=== PATIENT | female | born 1960 | race Caucasian/White ===

== ENCOUNTER 2022-06-03 07:40 | Outpatient (REF) | payer MEDICAID, SELFPAY ==
[2022-06-03 10:41] LABS: MANUAL DIFF FLAG NO
[2022-06-03 10:42] LABS: Basophils Absolute Auto 0.1 X10*3/uL (0.0-0.2); Basophils Percent Auto 0.9 % (0-2); Eosinophils Absolute Auto 0.2 X10*3/uL (0.0-0.4); Hematocrit 44.9 % (37.0-47.0); Hemoglobin 14.9 g/dl (12.0-16.0); Imm Gran Abs Auto 0.02 X10*3/uL (0.00-0.03); Imm Gran Pct Auto 0.3 % (0.0-0.4); Lymphocytes Percent Auto 30.9 % (20-40); Mean Corpuscular HGB Conc 33.2 g/dl (31.0-35.0); Mean Corpuscular Hemoglobin 33.1 pg (27.0-33.0); Mean Corpuscular Volume 99.8 fL (80.0-98.0); Mean Platelet Volume 10.6 fL (9.4-12.3); Monocytes Absolute Auto 0.5 X10*3/uL (0.1-1.2); Monocytes Percent Auto 8.1 % (2-11); Neutrophils Absolute Auto 3.6 x10*3/uL (2.0-8.3); Neutrophils Percent Auto 56.8 % (45-73); Platelet Count 276 X10*3/uL (160-400); Red Cell Distribution Width 11.8 % (11.0-16.0); White Blood Count 6.4 X10*3/uL (4.8-10.8)
[2022-06-03 11:01] LABS: Alanine Aminotransferase 38 U/L (0-31); Albumin Level 4.3 g/dL (3.5-5.0); Alkaline Phosphatase 91 U/L (39-117); Anion Gap 16 (12-20); Aspartate Amino Transferase 24 U/L (5-31); Bilirubin Total 0.6 mg/dL (0.0-1.0); Blood Urea Nitrogen 10 mg/dL (9-16); Calcium 9.5 mg/dL (8.4-10.2); Carbon Dioxide 25 mmol/L (22-29); Chloride 102 mmol/L (96-108); Cholesterol 177 mg/dL; Estimated Glomerular Filt Rate > 60; Glucose Fasting 99 mg/dL (60-99); HDL Cholesterol 61 mg/dL; LDL Cholesterol Calculated 102 mg/dl; Potassium 4.2 mmol/L (3.3-5.1); Sodium 139 mmol/L (135-145); Total Protein 6.9 g/dL (6.5-8.0); Triglycerides 72 mg/dL
[2022-06-03 11:25] LABS: Vitamin D 25-OH Total 40.7 ng/mL (>30)
== END 2022-06-03 07:41 | disposition home or self-care (01) ==
LOC: HO.10HDL 07:40
PROVIDERS: Visit Provider Internal Medicine
DX: Z00.00 Encounter for general adult medical examination without abnormal findings (principal)
CPT/HCPCS: 36415; 80053; 80061; 82306; 85025

== ENCOUNTER 2022-10-01 09:35 | Outpatient (REF) | payer MEDICAID, SELFPAY ==
[2022-10-01 10:35] LABS: MANUAL DIFF FLAG NO
[2022-10-01 10:45] LABS: Basophils Absolute Auto 0.1 X10*3/uL (0.0-0.2); Basophils Percent Auto 0.8 % (0-2); Eosinophils Absolute Auto 0.1 X10*3/uL (0.0-0.4); Eosinophils Percent Auto 0.6 % (0-4); Hematocrit 43.3 % (37.0-47.0); Hemoglobin 14.6 g/dl (12.0-16.0); Imm Gran Abs Auto 0.05 X10*3/uL (0.00-0.03); Imm Gran Pct Auto 0.4 % (0.0-0.4); Lymphocytes Absolute Auto 2.8 X10*3/uL (1.2-4.9); Mean Corpuscular HGB Conc 33.7 g/dl (31.0-35.0); Mean Corpuscular Hemoglobin 33.5 pg (27.0-33.0); Mean Corpuscular Volume 99.3 fL (80.0-98.0); Mean Platelet Volume 9.9 fL (9.4-12.3); Monocytes Absolute Auto 1.1 X10*3/uL (0.1-1.2); Monocytes Percent Auto 9.4 % (2-11); Neutrophils Absolute Auto 7.4 x10*3/uL (2.0-8.3); Neutrophils Percent Auto 64.8 % (45-73); Platelet Count 302 X10*3/uL (160-400); Red Blood Count 4.36 X10*6/uL (4.20-5.50); Red Cell Distribution Width 11.4 % (11.0-16.0); White Blood Count 11.4 X10*3/uL (4.8-10.8)
[2022-10-01 11:25] LABS: Erythrocyte Sedimentation Rate 3 MM/HR (0-20)
[2022-10-01 11:55] LABS: Alanine Aminotransferase 47 U/L (0-31); Albumin Level 4.1 g/dL (3.5-5.0); Alkaline Phosphatase 89 U/L (39-117); Anion Gap 13 (12-20); Aspartate Amino Transferase 24 U/L (5-31); Bilirubin Total 0.7 mg/dL (0.0-1.0); Blood Urea Nitrogen 16 mg/dL (9-16); C Reactive Protein 0.16 mg/dL (< or = 0.50); Calcium 9.7 mg/dL (8.4-10.2); Carbon Dioxide 28 mmol/L (22-29); Chloride 103 mmol/L (96-108); Estimated Glomerular Filt Rate > 60; Glucose Random 93 mg/dL (60-115); Potassium 3.8 mmol/L (3.3-5.1); Sodium 140 mmol/L (135-145); Total Protein 6.6 g/dL (6.5-8.0)
== END 2022-10-01 09:36 | disposition home or self-care (01) ==
LOC: HO.10HDL 09:35
PROVIDERS: Visit Provider Internal Medicine
DX: R21 Rash and other nonspecific skin eruption (principal)
CPT/HCPCS: 36415; 80053; 85025; 85652; 86140

== ENCOUNTER 2023-06-24 13:45 | Outpatient (REF) | payer MEDICAID, SELFPAY ==
[2023-06-24 13:57] LABS: MANUAL DIFF FLAG NO
[2023-06-24 14:29] LABS: Basophils Absolute Auto 0.1 X10*3/uL (0.0-0.2); Basophils Percent Auto 0.8 % (0-2); Eosinophils Absolute Auto 0.2 X10*3/uL (0.0-0.4); Eosinophils Percent Auto 2.7 % (0-4); Hematocrit 46.3 % (37.0-47.0); Hemoglobin 15.6 g/dl (12.0-16.0); Imm Gran Abs Auto 0.02 X10*3/uL (0.00-0.03); Imm Gran Pct Auto 0.2 % (0.0-0.4); Lymphocytes Absolute Auto 2.6 X10*3/uL (1.2-4.9); Lymphocytes Percent Auto 30.8 % (20-40); Mean Corpuscular HGB Conc 33.7 g/dl (31.0-35.0); Mean Corpuscular Hemoglobin 34.2 pg (27.0-33.0); Mean Corpuscular Volume 101.5 fL (80.0-98.0); Mean Platelet Volume 9.7 fL (9.4-12.3); Monocytes Percent Auto 11.2 % (2-11); Neutrophils Absolute Auto 4.6 x10*3/uL (2.0-8.3); Neutrophils Percent Auto 54.3 % (45-73); Platelet Count 266 X10*3/uL (160-400); Red Blood Count 4.56 X10*6/uL (4.20-5.50); Red Cell Distribution Width 11.8 % (11.0-16.0); White Blood Count 8.5 X10*3/uL (4.8-10.8)
[2023-06-24 15:05] LABS: Alanine Aminotransferase 50 U/L (0-31); Albumin Level 4.4 g/dL (3.5-5.0); Alkaline Phosphatase 99 U/L (39-117); Anion Gap 14 (12-20); Aspartate Amino Transferase 37 U/L (5-31); Bilirubin Total 0.6 mg/dL (0.0-1.0); Blood Urea Nitrogen 7 mg/dL (9-16); C Reactive Protein 0.93 mg/dL (< or = 0.50); Calcium 10.4 mg/dL (8.4-10.2); Carbon Dioxide 27 mmol/L (22-29); Chloride 103 mmol/L (96-108); Estimated Glomerular Filt Rate > 60; Glucose Random 85 mg/dL (60-115); Potassium 4.7 mmol/L (3.3-5.1); Sodium 139 mmol/L (135-145); Total Protein 7.7 g/dL (6.5-8.0)
[2023-06-25 08:30] LABS: Syphilis Screen Nonreactive (Nonreactive)
[2023-06-27 09:23] LABS: Lyme Abs Screen <0.90 index
== END 2023-06-24 13:46 | disposition home or self-care (01) ==
LOC: HO.LAB 13:45
PROVIDERS: PCP Internal Medicine; Visit Provider Internal Medicine
DX: R21 Rash and other nonspecific skin eruption (principal); I10 Essential (primary) hypertension
CPT/HCPCS: 36415; 80053; 82550; 85025; 86140; 86617; 86618; 86780

== ENCOUNTER 2025-01-14 09:53 | Outpatient (AMB) | payer MEDICAID, SELFPAY ==
--- NOTE | 2025-01-14 09:56 | A.OFFPC_ITS ---
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 She has been taking klonopin every morning for management of palpitations/anxiety and will occasionally take an additional 0.5mg if needed for breakthrough symptoms. She is not currently on SSRI/SNRI. Did try fluoxetine in the past but had adverse side effects including fogginess and overall not feeling like herself. She also tells me she has some discomfort/cramping in the hands bilaterally but is able to do exercises and stretching with improvement in symptoms. Also suspects OA of the L hip. Reports pain primarily when sitting for periods that improves when walking. Overall finds symptoms tolerable with activity and stretching. Able to complete ADLs. She also assists in taking care of her brother who last year had a femur fracture and hip replacement. She is not formally exercising but is keeping active. Follows a healthy diet with good protein, vegetable and fruit intake though does have to soften fruits/vegetable due to difficulties with her dentures for which she is following with a dentist. She did initially have elevated blood pressure which improved to 132/82 at the conclusion of the visit- suspect r/t anxiety. Overall doing well. [facility] Medical History (Updated 01/14/25 @ 10:14 by [facility]) Obesity Anxiety Review of Systems Const All systems reviewed & are unremarkable except as noted in HPI and below Physical exam (Primary Care) Vital Signs: Last Vital Signs Temp 98.9 F 01/14/25 10:00 Pulse 102 H 01/14/25 10:00 Resp 16 01/14/25 10:00 BP 132/82 01/14/25 10:32 Pulse Ox 98 01/14/25 10:00 Oxygen Delivery Method Room Air 01/14/25 10:00 BMI result Body Mass Index 37.8 Const Other: Constitutional - Awake and Alert, No apparent distress Eyes - PERRLA, EOMI Cardiovascular - S1S2, RRR, No edema Respiratory - Normal lung expansion, Normal respiratory effort, No respiratory distress, CTA bilaterally Extremities - no calf tenderness bilaterally, no swelling Skin - Warm/Dry Neurological - Alert & oriented x3 Psychological - Appropriate affect Coding Level of Care Code New Pt Level 4 (73634) Complex EM visit Add On G2211 Diagnoses Anxiety F41.9 Obesity E66.9 Assessment & Plan Assessment & Plan (1) Anxiety: Code(s): F41.9 - Anxiety disorder, unspecified Category: Medical Plan: Overall stable. Discussed once daily use of benzodiazepines are unlikely to provide good maintenance given duration of therapy but are effective as needed. Discussed trialing an SSRI for better maintenance of symptoms to hopefully decrease the need for klonopin which we discussed is highly addictive and difficult to wean from. She is agreeable to trialling sertraline 50mg daily for management of generalized anxiety. Recommend taking 25 mg nightly for the 1st week and then increasing to 50 mg nightly. Discussed side effects of medications. She is advised she can still take klonipin as needed. Masspat reviewed and rx sent. Follow up in 1 month. (2) Obesity: Code(s): E66.9 - Obesity, unspecified Category: Medical Plan: Continue with healthy diet and increase cardio and resistance exercise. This will likely improve her anxiety as well while improving weight loss. Discussed that resistance/weight-bearing exercise will also help for osteoporosis prevention. Plan Follow-up in 1 month. Labs ordered to be completed after the visit today. Orders: Orders Complete Blood Count Auto Diff Today E66.9 - Obesity, unspecified, F41.9 - Anxiety disorder, unspecified, Z13.1 - Encounter for screening for diabetes mellitus, Z13.220 - Encounter for screening for lipoid disorders Lipid Panel Today E66.9 - Obesity, unspecified, F41.9 - Anxiety disorder, unspecified, Z13.1 - Encounter for screening for diabetes mellitus, Z13.220 - Encounter for screening for lipoid disorders TSH reflex Free T4 Today E66.9 - Obesity, unspecified, F41.9 - Anxiety disorder, unspecified, Z13.1 - Encounter for screening for diabetes mellitus, Z13.220 - Encounter for screening for lipoid disorders Liver Panel Today E66.9 - Obesity, unspecified, F41.9 - Anxiety disorder, unspecified, Z13.1 - Encounter for screening for diabetes mellitus, Z13.220 - Encounter for screening for lipoid disorders Basic Metabolic Panel Today E66.9 - Obesity, unspecified, F41.9 - Anxiety disorder, unspecified, Z13.1 - Encounter for screening for diabetes mellitus, Z13.220 - Encounter for screening for lipoid disorders Hemoglobin A1c Today E66.9 - Obesity, unspecified, F41.9 - Anxiety disorder, unspecified, Z13.1 - Encounter for screening for diabetes mellitus, Z13.220 - Encounter for screening for lipoid disorders Medications: New sertraline Take 1 half tab nightly x 7 days, then take 1 tab nightly 50 mg PO DAILY 30 tabs 0RF Changed From clonazepam take 1 tab and half by mouth as needed orally bedtime; administer 30 minutes before bedtime To clonazepam take 1 - 1.5 tabs as needed for anxiety; administer 30 minutes before bedtime 45 tabs 0RF
[2025-01-14 10:00] VITALS: BP 156/86; PULSE 102; RESP 16; TEMP 37.2; O2SAT 98; BMI 37.8
[2025-01-14 10:32] VITALS: BP 132/82
== END 2025-01-14 10:33 | disposition home or self-care (01) ==
LOC: HO.HMCHD 09:54
PROVIDERS: PCP Internal Medicine; Visit Provider Physician Assistant
DX: F41.9 Anxiety disorder, unspecified (principal); E66.9 Obesity, unspecified

== ENCOUNTER → 2025-01-14 09:53 | Outpatient (BNVA) | payer OTHER, SELFPAY | PROVIDERS: PCP Internal Medicine; Visit Provider Physician Assistant | DX: F41.9 Anxiety disorder, unspecified (principal); E66.9 Obesity, unspecified; Z68.37 Body mass index [BMI] 37.0-37.9, adult | CPT/HCPCS: 99212 ==

== ENCOUNTER 2025-01-14 10:39 | Outpatient (REF) | payer OTHER, SELFPAY ==
[2025-01-14 13:50] LABS: MANUAL DIFF FLAG NO
[2025-01-14 14:00] LABS: Basophils Absolute Auto 0.1 X10*3/uL (0.0-0.2); Eosinophils Absolute Auto 0.2 X10*3/uL (0.0-0.4); Eosinophils Percent Auto 2.2 % (0-4); Hematocrit 44.8 % (37.0-47.0); Hemoglobin 15.2 g/dl (12.0-16.0); Imm Gran Abs Auto 0.04 X10*3/uL (0.00-0.03); Imm Gran Pct Auto 0.5 % (0.0-0.4); Lymphocytes Absolute Auto 2.4 X10*3/uL (1.2-4.9); Lymphocytes Percent Auto 30.3 % (20-40); Mean Corpuscular HGB Conc 33.9 g/dl (31.0-35.0); Mean Corpuscular Hemoglobin 34.7 pg (27.0-33.0); Mean Corpuscular Volume 102.3 fL (80.0-98.0); Mean Platelet Volume 9.9 fL (9.4-12.3); Monocytes Absolute Auto 0.8 X10*3/uL (0.1-1.2); Monocytes Percent Auto 9.6 % (2-11); Neutrophils Absolute Auto 4.4 x10*3/uL (2.0-8.3); Neutrophils Percent Auto 56.4 % (45-73); Platelet Count 255 X10*3/uL (160-400); Red Blood Count 4.38 X10*6/uL (4.20-5.50); Red Cell Distribution Width 11.5 % (11.0-16.0); White Blood Count 7.8 X10*3/uL (4.8-10.8)
[2025-01-14 14:04] LABS: Estimated Average Glucose 100 mg/dL; Hemoglobin A1C 126.5517 umol/L; Hemoglobin A1c % 5.1 % (<6.0); Total Hemoglobin (HGBA1C) 3936.4902 umol/L
[2025-01-14 14:27] LABS: Alanine Aminotransferase 61 U/L (0-31); Albumin Level 4.1 g/dL (3.5-5.0); Alkaline Phosphatase 100 U/L (39-117); Anion Gap 11 (12-20); Aspartate Amino Transferase 45 U/L (5-31); Bilirubin Direct 0.2 mg/dL (0.0-0.5); Bilirubin Total 0.5 mg/dL (0.0-1.0); Blood Urea Nitrogen 8 mg/dL (9-16); Calcium 9.7 mg/dL (8.4-10.2); Carbon Dioxide 27 mmol/L (22-29); Chloride 103 mmol/L (96-108); Cholesterol 183 mg/dL (<200); Estimated Glomerular Filt Rate > 60; Glucose Random 105 mg/dL (60-115); HDL Cholesterol 78 mg/dL (>40); LDL Cholesterol Calculated 93 mg/dL (<100); Potassium 4.2 mmol/L (3.3-5.1); Sodium 137 mmol/L (135-145); TSH reflex Free T4 1.57 uIU/mL (0.32-4.0); Total Protein 7.5 g/dL (6.5-8.0); Triglycerides 63 mg/dL (<150)
== END 2025-01-14 10:40 | disposition home or self-care (01) ==
LOC: HO.10HDL 10:39
PROVIDERS: Visit Provider Physician Assistant
DX: F41.9 Anxiety disorder, unspecified (principal); E66.9 Obesity, unspecified; Z13.1 Encounter for screening for diabetes mellitus; Z13.220 Encounter for screening for lipoid disorders
CPT/HCPCS: 36415; 80048; 80061; 80076; 83036; 84443; 85025

== ENCOUNTER 2025-03-08 08:09 | Outpatient (REF) | payer OTHER, SELFPAY ==
--- NOTE | ~2025-03-08 | US_ITS ---
CLINICAL HISTORY: R74.8 - Abnormal levels of other serum enzymes US abdomen limited Comparison: None Findings: Limited exam due to body habitus and bowel gas shadowing. The visualized pancreas is normal, pancreatic tail is obscured by bowel gas. The liver is enlarged, right lobe length is 18.2 cm. Markedly increased echogenicity, liver is not completely visualized, majority of the right hepatic lobe, posterior superior left hepatic lobe are not seen, no focal lesion is seen in the visualized liver. No bile duct dilatation. Common duct 4 mm diameter. Physiologic distention of the gallbladder, on cine images, there is small dependent intraluminal heterogeneous echogenicity, no gallbladder wall thickening, negative sonographic Perry's sign. Main portal vein shows antegrade flow. Right kidney normal, 11.1 cm in length. No free fluid in the right upper quadrant of the abdomen. Impression: 1. Probable small gallstones or sludge, not well seen, no acute cholecystitis. 2. Hepatomegaly with steatosis, liver is not clearly or entirely seen. This document has been electronically signed by: Siobhan Kohli MD on 03/08/2025 12:25:26
== END 2025-03-08 08:10 | disposition home or self-care (01) ==
LOC: HO.US 08:09
PROVIDERS: PCP Internal Medicine; Visit Provider Physician Assistant
DX: R74.8 Abnormal levels of other serum enzymes (principal)
CPT/HCPCS: 76705

== ENCOUNTER → 2025-03-08 08:11 | Outpatient (BNV) | payer OTHER, SELFPAY | PROVIDERS: PCP Internal Medicine; Visit Provider Radiology Diagnostic Radiology | DX: K76.0 Fatty (change of) liver, not elsewhere classified (principal); R16.0 Hepatomegaly, not elsewhere classified | CPT/HCPCS: 76705 ==

== ENCOUNTER 2025-05-18 08:53 | Outpatient (AMB) | payer OTHER, SELFPAY ==
--- NOTE | 2025-05-18 08:56 | MHC.PC.OV ---
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 Accompanied by: Self / Same As Patient Allergies codeine Allergy (Intermediate, Verified 05/18/25 08:56) Vomiting Tobacco use date assessed: 05/18/25 Fall risk assessment: No Falls in past year Last assessed Fall Risk: 05/18/25 Dental Screening Dental Screen Date: 05/18/25 Did you have a dental visit in the last 12 months?: No Did you have a dental problem in the last 6 months where you did not have access to dental care?: No Was dental information given to patient?: No HPI HPI Comments History of Present Illness Details 64 year old female with history of anxiety and obesity presents to the issue for follow up. Anxiety- didn't start zoloft, concerned about side effects including liver failure. Reports tried in the past made her groggy. Taking care of her elderly brother seeing early signs of alzheimers and difficulty with mobility. Prior to meds had significant GI issues, over 30 years ago. On clonazepam with good effect . Does endorse some depressive symptoms/sadness, seems situation r/t brother. Does still experience Obesity- bmi 36.9. Has lost about 5 pounds since last visit. NAFLD- mildly elevated LFTs. Eating healthier and exercising Concerns: nonpainful lumps on arms ROS: see hpi EXAM: Constitutional - Awake and Alert, No apparent distress Eyes - PERRL Cardiovascular - S1S2, RRR, No edema Respiratory - Normal lung expansion, Normal respiratory effort, No respiratory distress, CTA bilaterally Extremities - no calf tenderness bilaterally, no swelling. Soft fatty masses about 1.5in on bilateral arms, nontender Skin - Warm/Dry Neurological - Alert & oriented x3 Psychological - Appropriate affect, tearful at times [facility] Medical History (Updated 05/18/25 @ 09:29 by [facility]) NAFLD (nonalcoholic fatty liver disease) Spongiotic dermatitis MRSA (methicillin resistant staph aureus) culture positive Elevated liver enzymes Obesity Anxiety Family History Brother Seizure Brother Seizure Social History Housing: House Patient Tobacco Use Status: Current everyday Tobacco user Cigarettes Per Day: 8 e-Cigarette/Vaping Use: Never Used service: No Current occupational status: retired Cognitive needs: No Hearing needs: No Vision needs: Yes (Reading glasses) Questionnaire PHQ-9 Over the last 2 weeks, how often have you been bothered by any of the following problems? 1. Little interest or pleasure in doing things: not at all 2. Feeling down, depressed, or hopeless: several days 3. Trouble falling or staying asleep, or sleeping too much: several days 4. Feeling tired or having little energy: several days 5. Poor appetite or overeating: not at all 6. Feeling bad about yourself - or that you are a failure or have let yourself or your family down: not at all 7. Trouble concentrating on things, such as reading the newspaper or watching television: not at all 8. Moving or speaking so slowly that other people could have noticed. Or the opposite - being so fidgety or restless that you have been moving around a lot more than usual: not at all 9. Thoughts that you would be better off or of hurting yourself in some way: not at all Total score: 3 Source: Developed by Drs. José Miguel Tyson, Nadiya Interiano, Esa Webber and colleagues, with an educational deepa from [employer]. Thrive Questionnaire Date Thrive assessed: 05/18/25 I am a: Patient What is your living situation today?: I have a steady place to live Within the past 12 months, did the food you bought not last and you didn't have the money to get more?: Never true Within the past 12 months, did you worry whether your food would run out before you got money to buy more?: Never true Do you have trouble paying for medicines?: No Do you have trouble getting transportation to medical appointments?: No Do you have trouble paying your heating and electricity bill?: No Do you have trouble taking care of your child, family member or friend?: No Do you have trouble with day-to-day activities such as bathing, preparing meals, shopping, managing finances, etc.?: No Are you currently unemployed and looking for a job?: No Are you interested in more education?: No Please select the resources that you would like help with: None THRIVE Score: 0 KAVITA-7 AMB Questionnaire KAVITA-7 Date KAVITA - 7 assessed: 05/18/25 Feeling nervous, anxious, or on edge: 1 = Several days Not being able to stop or control worryin = Several days Worrying too much about different things: 1 = Several days Trouble relaxin = Not at all Being so restless that it is hard to sit still: 0 = Not at all Becoming easily annoyed or irritable: 0 = Not at all Feeling afraid as if something awful might happen: 0 = Not at all Total KAVITA-7 score (0-4 normal; 5-9 mild; 10-14 moderate; 15-21 severe): 3 Source: Developed by Drs. José Miguel Tyson, Nadiya Interiano, Esa Webber and colleagues, with an educational deepa from [employer]. Physical exam (Primary Care) Vital Signs: Last Vital Signs Temp 97.3 F 05/18/25 09:06 Pulse 97 05/18/25 09:06 BP 140/82 H 05/18/25 09:06 Pulse Ox 99 05/18/25 09:06 Oxygen Delivery Method Room Air 05/18/25 09:06 BMI result Body Mass Index 36.9 Tobacco/Smoking Status: Tobacco use Status Tobacco use date assessed 05/18/25 05/18/25 09:09 Patient Tobacco Use Status Current everyday Tobacco 05/18/25 09:09 e-Cigarette/Vaping Use Never Used 05/18/25 09:09 PHQ-9: PHQ-9 Score PHQ-9: Total score 3 05/18/25 09:09 Thrive Assessment: Date of Thrive Assessment Date Thrive assessed 05/18/25 05/18/25 09:09 Coding Level of Care Code Est Pt Level 4 (29305) Diagnoses Anxiety F41.9 Obesity E66.9 NAFLD (nonalcoholic fatty liver disease) K76.0 Lipoma of arm D17.20 Assessment & Plan Assessment & Plan (1) Anxiety: Code(s): F41.9 - Anxiety disorder, unspecified Category: Medical Plan: Will continue clonazepam given symptoms seem to be controlled. (2) Obesity: Code(s): E66.9 - Obesity, unspecified Category: Medical (3) NAFLD (nonalcoholic fatty liver disease): Code(s): K76.0 - Fatty (change of) liver, not elsewhere classified Category: Medical Plan: Continue with healthy diet changes (4) Lipoma of arm: Code(s): D17.20 - Benign lipomatous neoplasm of skin and subcutaneous tissue of unspecified limb Category: Medical Plan: Monitor for now. Plan Follow up for annual exam/physical vs AWV
[2025-05-18 09:06] VITALS: BP 140/82; PULSE 97; TEMP 36.3; O2SAT 99; BMI 36.9
== END 2025-05-18 10:16 | disposition home or self-care (01) ==
LOC: HO.HMCHD 08:53
PROVIDERS: PCP Internal Medicine; Visit Provider Physician Assistant
DX: F41.9 Anxiety disorder, unspecified (principal); E66.9 Obesity, unspecified; K76.0 Fatty (change of) liver, not elsewhere classified; D17.20 Benign lipomatous neoplasm of skin and subcutaneous tissue of unspecified limb

== ENCOUNTER → 2025-05-18 08:53 | Outpatient (BNVA) | payer MEDICARE, MEDICAID, SELFPAY | PROVIDERS: PCP Internal Medicine; Visit Provider Physician Assistant | DX: F41.9 Anxiety disorder, unspecified (principal); E66.9 Obesity, unspecified; Z68.36 Body mass index [BMI] 36.0-36.9, adult; K76.0 Fatty (change of) liver, not elsewhere classified; D17.20 Benign lipomatous neoplasm of skin and subcutaneous tissue of unspecified limb; Z13.30 Encounter for screening examination for mental health and behavioral disorders, unspecified; Z13.39 Encounter for screening examination for other mental health and behavioral disorders | CPT/HCPCS: 96127; 99212 ==